=== PATIENT | male | born 1975 | race Caucasian/White ===

== ENCOUNTER 2020-12-14 17:10 | Emergency (ER) | payer OTHER, SELFPAY ==
[2020-12-14 17:17] VITALS: BP 159/109; PULSE 107; RESP 20; TEMP 38.1; O2SAT 98
[2020-12-14] MEDS: KETOROLAC (*BKC) 60 MG/2 ML VIAL IM (18:22)
--- NOTE | 2020-12-14 18:31 | ED.DENTAL ---
HPI - Dental/Oral General Chief complaint: Dental/Oral <Keysha Greene PA-C - Last Filed: 12/14/20 18:40> Stated complaint: cracked tooth <Keysha Greene PA-C - Last Filed: 12/14/20 18:40> Time Seen by Provider: 12/14/20 17:14 <Keysha Greene PA-C - Last Filed: 12/14/20 18:40> Source: patient <Keysha Greene PA-C - Last Filed: 12/14/20 18:40> Mode of arrival: ambulatory <DANDRE Rivera Last Filed: 12/14/20 18:40> Limitations: no limitations <DANDRE Rivera Last Filed: 12/14/20 18:40> History of Present Illness HPI Narrative: Patient presents with chief complaint of low-grade fever, swelling to right lower jaw, and pain for days. Patient states he has been using oragel but not taking pain medications. He states 9 months ago his tooth filling came out of the cracked teeth. He denies any drainage. <Keysha Greene PA-C - Last Filed: 12/14/20 18:40> Related Data Home medications: Home Medications Medication Instructions Recorded Confirmed hydrocodone-acetaminophen 12/14/20 naproxen 12/14/20 12/14/20 <Keysha Greene PA-C - Last Filed: 12/14/20 18:40> Allergies/adverse reactions: Allergies Allergy/AdvReac Type Severity Reaction Status Date / Time No Known Allergies Allergy Mild Verified 12/14/20 17:25 <Keysha Greene PA-C - Last Filed: 12/14/20 18:40> Review of Systems Review of Systems: CONSTITUTIONAL: Denies fever, chills, or sweats. EYES: Denies visual changes, redness, or discharge. ENT:Reports dental pain Denies rhinorrhea, congestion, sore throat, or otalgia. CARDIOVASCULAR: Denies chest pain, palpitations, or edema. RESPIRATORY: Denies cough or dyspnea. GASTROINTESTINAL: Denies abdominal pain, nausea, vomiting, or diarrhea. GENITOURINARY: Denies dysuria or hematuria. SKIN: Denies rash or itching. MUSCULOSKELETAL: Denies back pain, myalgia, or joint pain NEUROLOGIC: Denies headache, numbness, dizziness, or weakness. PSYCHIATRIC: Denies anxiety or depression. <Keysha Greene PA-C - Last Filed: 12/14/20 18:40> Exam Narrative: GENERAL: Well-appearing, well-nourished. HEAD: Normocephalic, atraumatic. Swelling to lower right jaw. Teeth with many fillings and cavities. No abscess noted. EYES: PERRLA and EOMI. CHEST: Clear to auscultation. No respiratory distress. No wheezes rales or rhonchi HEART: Regular rate and rhythm. Normal peripheral pulses. EXTREMITIES: No acute changes in ROM. No edema. SKIN: Warm, dry, no rash. NEURO: No focal deficits. Alert and oriented x3. PSYCH: Normal mood and affect. <DANDRE Rivera Last Filed: 12/14/20 18:40> Course Vital Signs Vital signs: Vital Signs Temperature 100.5 F H 12/14/20 17:17 Pulse Rate 107 H 12/14/20 17:17 Respiratory Rate 20 12/14/20 17:17 Blood Pressure 159/109 H 12/14/20 17:17 Pulse Oximetry 98 12/14/20 17:17 Temperature 100.6 F H 12/14/20 19:11 Pulse Rate 94 12/14/20 19:11 Respiratory Rate 18 12/14/20 19:11 Blood Pressure 139/91 H 12/14/20 19:11 Pulse Oximetry 96 12/14/20 19:11 <DANDRE Rivera Last Filed: 12/14/20 18:40> MDM - Dental/Oral MDM Narrative Medical decision making narrative: Discussed the importance of following up with dentist for definitive treatment. Patient will be placed on augmentin and given lidocaine viscous. Patient has prescribed pain meds at home he has not yet taken. <DANDRE Rivera Last Filed: 12/14/20 18:40> Differential Diagnosis Differential diagnosis: Likely gingival abscess, dental caries, toothache, dental abscess, fracture of tooth and aphthous ulcer <DANDRE Rivera Last Filed: 12/14/20 18:40> Discharge Plan Discharge Clinical Impression: Toothache, Fracture of tooth <Keysha Greene PA-C - Last Filed: 12/14/20 18:40> Patient Disposition: Home, Self-Care <Keysha Greene PA-C - Last Filed: 12/14/20 18:40> Condition:
[2020-12-14 19:11] VITALS: BP 139/91; PULSE 94; RESP 18; TEMP 38.1; O2SAT 96
== END 2020-12-14 19:14 | disposition home or self-care (01) ==
PROVIDERS: Emergency Provider General Practice; PCP Family Medicine
DX: K08.89 Other specified disorders of teeth and supporting structures (principal); K03.81 Cracked tooth
CPT/HCPCS: 96372; 99283; J1885